=== PATIENT | female | born 1975 | race Caucasian/White ===

== ENCOUNTER 2017-06-05 14:41 | Emergency (ER) | payer OTHER ==
[2017-06-05] MEDS ORDERED: Sodium Chloride 0.9% 1,000 ML IV ONE (15:06)
[2017-06-05] MEDS ORDERED: Ondansetron 4 MG/2 ML SDV IVPUSH ONE (15:06)
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
[2017-06-05] MEDS ORDERED: Ondansetron 4 MG/2 ML SDV ONE (15:20)
[2017-06-05 15:43] LABS: CHLORIDE,CL 104 mmol/L (98-107); SODIUM,NA 141 mmol/L (136-145)
== END 2017-06-05 15:56 | disposition left against medical advice (07) ==
LOC: MW.ED 14:41
DX: T42.6X1A Poisoning by other antiepileptic and sedative-hypnotic drugs, accidental (unintentional), initial encounter (principal); Z91.040 Latex allergy status
CPT/HCPCS: 36415; 80053; 85025; 99283; G0480

== ENCOUNTER 2017-09-04 17:16 | Emergency (ER) | payer OTHER ==
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
--- NOTE | 2017-09-05 20:59 | CR ---
EXAM DATE: 09/04/17 PATIENT'S AGE: 41 Patient: KIRTI SORTO Facility: [place], [place] Site . Site : 1975 Study: XRay Extremity Right foot [id number] 6:01:25 PM Ordering Physician: Doctor Kohli Final Report: INDICATION: injured right foot today in [facility] pool INDICATION: Foot injury. TECHNIQUE: Right foot, three views. COMPARISON: None FINDINGS: Bones: Alignment is normal. No fractures or bone lesions. Joint spaces: Unremarkable. Soft tissues: Unremarkable. IMPRESSION: No acute bone abnormality. The Lisfranc joint is in anatomic alignment. Dictated by Alex Kerns MD @ 09/04/2017 6:34:54 PM Dictated by: Alex Kerns MD @ 09/04/2017 18:35:03 (Electronic Signature) Report Signed by Proxy. EDDIE
== END 2017-09-04 18:45 | disposition home or self-care (01) ==
LOC: MW.ED 17:16
DX: S99.921A Unspecified injury of right foot, initial encounter (principal); F32.9 Major depressive disorder, single episode, unspecified; Z91.040 Latex allergy status; Z79.899 Other long term (current) drug therapy; X50.9XXA Other and unspecified overexertion or strenuous movements or postures, initial encounter
CPT/HCPCS: 73620-26-RT; 73620-RT; 99283

== ENCOUNTER 2019-03-01 06:35 | Day surgery (SDC) | payer BC, OTHER ==
[~2019-03-01 06:35] MED LIST: Lactated Ringers 1,000 ML IV SCH; Sodium Chloride 0.9% 10 ML SDV IV PRN; Sodium Chloride 0.9% 10 ML Syringe FLUSH PRN; Sodium Chloride 0.9% 2.5 ML Syringe FLUSH PRN; ceFAZolin 2 GM in Premix Bag 1 BAG IV ONE
[2019-03-01] MEDS ORDERED: fentaNYL 250 MCG/5 ML SDV ONE (07:04)
[2019-03-01] MEDS ORDERED: Ondansetron 4 MG/2 ML SDV ONE (07:04)
[2019-03-01] MEDS ORDERED: Propofol 200 MG/20 ML SDV ONE (07:04)
[2019-03-01] MEDS ORDERED: Lidocaine 2% 5 ML SDV ONE (07:04)
[2019-03-01] MEDS ORDERED: Midazolam 1 MG/ML 2 ML SDV ONE (07:04)
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
[2019-03-01] MEDS ORDERED: Lidocaine 1% 20 ML MDV ONE (07:23)
[2019-03-01] MEDS ORDERED: Sodium Chloride 0.9% 20 ML ONE (08:03)
[2019-03-01] MEDS ORDERED: ceFAZolin 1 GM Vial ONE (08:03)
[2019-03-01] MEDS ORDERED: Phenylephrine/Normal Saline 100 MCG/ML 10 ML Syringe ONE (08:07)
[2019-03-01] MEDS ORDERED: Octyl 2-Cyanoacrylate 1 Tube ONE (08:11)
[2019-03-01] MEDS ORDERED: 50% Dextrose in Water 50 ML Syringe IVPUSH PRN (08:32)
[2019-03-01] MEDS ORDERED: fentaNYL 100 MCG/2 ML SDV IVPUSH PRN (08:32)
[2019-03-01] MEDS ORDERED: Naloxone 0.4 MG/ML Syringe IVPUSH PRN (08:32)
[2019-03-01] MEDS ORDERED: Albuterol 0.083% 2.5 MG/3 ML Neb Soln NEB PRN (08:32)
[2019-03-01] MEDS ORDERED: EPINEPHrine 1:10,000 1 MG/10 ML Syringe IVPUSH PRN (08:32)
[2019-03-01] MEDS ORDERED: Atropine 0.1 MG/ML 10 ML Syringe IVPUSH PRN ×2 (08:32)
--- NOTE | 2019-03-01 08:59 | PCM.OPNOTE ---
- General Post-Op/Procedure Note Date of Surgery/Procedure: 03/01/19 Operative Procedure(s): Left breast tissue excision Findings: Left breast tissue excised under the left areola measuring 4.5 x 1.5 x 2cm in size. Pre Op Diagnosis: Fibrocystic breast disease Post-Op Diagnosis: same Anesthesia Technique: General LMA Primary Surgeon: Radha Morrison Fluid Replacement, Intraop: 1,000 EBL in mLs: 5 Condition: Good
--- NOTE | 2019-03-01 10:02 | PCM.POSTAN ---
POST ANESTHESIA ASSESSMENT - MENTAL STATUS Mental Status: Alert, Oriented - VITAL SIGNS Vital Signs: Last Vital Signs Temp 97.9 F 03/01/19 08:45 Pulse 72 03/01/19 09:05 Resp 15 03/01/19 09:05 BP 102/57 L 03/01/19 09:05 Pulse Ox 99 03/01/19 09:05 - RESPIRATORY Respiratory Status: Respiratory Rate WNL, Airway Patent, O2 Saturation Stable - CARDIOVASCULAR CV Status: Pulse Rate WNL, Blood Pressure Stable - GASTROINTESTINAL GI Status: No Symptoms - POST OP HYDRATION Hydration Status: Adequate & Stable
--- NOTE | 2019-03-01 10:03 | PCM48HPAN ---
Post Anesthesia Note - EVALUATION WITHIN 48HRS OF ANESTHETIC Vital Signs in Normal Range: Yes Patient Participated in Evaluation: Yes Respiratory Function Stable: Yes Airway Patent: Yes Cardiovascular Function Stable: Yes Hydration Status Stable: Yes Pain Control Satisfactory: Yes Nausea and Vomiting Control Satisfactory: Yes Mental Status Recovered: Yes Vital Signs: Last Vital Signs Temp 97.9 F 03/01/19 08:45 Pulse 72 03/01/19 09:05 Resp 15 03/01/19 09:05 BP 102/57 L 03/01/19 09:05 Pulse Ox 99 03/01/19 09:05
--- NOTE | 2019-03-01 10:47 | OR ---
SURGEON: RADHA MORRISON MD DATE OF PROCEDURE: 03/01/2019 PREOPERATIVE DIAGNOSIS: Fibrocystic breast disease. POSTOPERATIVE DIAGNOSIS: Fibrocystic breast disease. PROCEDURE PERFORMED: Excision of left breast cyst. PRIMARY SURGEON: Radha Morrison MD. ANESTHESIA: General LMA, local. FLUIDS: 1000 mL of crystalloid. ESTIMATED BLOOD LOSS: 5 mL. FINDINGS: Dense fibrocystic tissue underneath the left areola. COMPLICATIONS: None. INDICATIONS: The patient is a 43-year-old female with fibrocystic breast disease. She has several cysts, but there is one underneath her left nipple that it is particularly bothersome as it is very superficial. This was palpated in clinic and the decision was made to excise this piece of tissue. The patient and I discussed the procedure, expected perioperative course, and risks including bleeding or infection as well as alteration in sensation. She verbalized understanding and wishes to proceed. PROCEDURE IN DETAIL: The patient was brought into the OR, placed on the OR table in supine position. A time-out was completed verifying the patient's name, age, date of , allergies, and procedure to be performed. General LMA anesthesia was induced. The left breast and chest wall were prepped and draped in usual standard fashion. I anesthetized the superior areolar border with a 1:1 combination of 0.5% Marcaine plain and 1% lidocaine plain. A 10 blade was used to make an incision along the superior areolar border. Cautery was used to dissect down to the level of the breast tissue. I then elevated the nipple and dissected underneath this. The tissue underneath the superior half of the areola was dense and lobular. I did not identify a specific cyst, but the cyst on the ultrasound was quite small. The decision was made to excise the breast tissue under this area to hopefully include the cyst in the specimen. Using cautery, I dissected out the dense fibrous tissue underneath this area. At the end, I excised an area of tissue 4.5 x 1.5 x 2 cm in size. This tissue was firm and dense and felt similar to what I felt in clinic and what we felt preoperatively. It was labeled as left breast tissue and sent to pathology. The wound was then explored, and I did not feel any further densities in the immediate area. The patient's surrounding breast tissue was dense, consistent with her known history of fibrocystic breast disease. Electrocautery was used to achieve hemostasis. The wound was then closed using interrupted 3-0 Vicryl in layers to close the wound and to reapproximate the breast skin. The breast skin was then closed with a running 4-0 Monocryl suture. Dermabond and a sterile dressing were applied. The patient tolerated the procedure well and was transferred to the PACU in stable condition. All counts were complete and correct at the end of the case. MASOOD / MARU /[id number]
== END 2019-03-01 09:42 | disposition home or self-care (01) ==
LOC: MW.SDS 06:35
PROVIDERS: ATTEND Surgery
DX: N60.12 Diffuse cystic mastopathy of left breast (principal); N64.1 Fat necrosis of breast; F32.9 Major depressive disorder, single episode, unspecified; F41.9 Anxiety disorder, unspecified; E66.9 Obesity, unspecified; Z68.30 Body mass index [BMI] 30.0-30.9, adult; Z91.040 Latex allergy status
CPT/HCPCS: 19120; 81025; 88307; A9270; J0690; J2001; J2250; J2370; J2405; J2704; J3010; J7120; 00400